=== PATIENT | female | born 1935 | race Caucasian/White ===

== ENCOUNTER 2021-06-06 10:59 | Emergency (ER) | payer OTHER, MEDICARE ==
[~2021-06-06] VITALS: Ht 152.4 cm; Wt 71.7 kg
[~2021-06-06 10:59] MED LIST: ALLOPURINOL100 MG PO; AMOX TR K CLV PO; ATENOLOL25 MG PO; AUGMENTIN 500-500 MG PO; CARAFATE1 GM PO; CARDURA1 MG PO; DIOVAN80 MG PO; DITROPAN XL5 MG PO; DOXAZOSIN MESYLA1 MG PO; FLAGYL250 MG PO; FUROSEMIDE20 MG PO; HUMULIN 70100 UNIT/1 SUB-Q; HUMULIN 70100 UNIT/3 SUB-Q; IRON236 MG PO; KLOR-CON 1010 MEQ PO; LANTUS SOL100 UNIT/1 SUB-Q; LEVOTHYROXINE50 MCG PO; LIPITOR10 MG PO; METRONIDAZOLE250 MG PO; OMEPRAZOLE20 MG PO; OXYBUTYNIN CHLOR5 MG PO; OXYCODON-ACETA1 EAC2 PO; PERCOCET 7.5-31 EACH PO; SUCRALFATE1 GM PO; TRAVATAN Z5 ML OU; VALSARTAN80 MG PO; VENLAFAXINE HCL75 MG PO; VITAMIN D1000 UNI1 PO; VITAMIN D5000 UNIT PO
[2021-06-06] MEDS ORDERED: ELIQUIS2.5 MG PO (11:22)
[2021-06-06] MEDS ORDERED: ALLOPURINOL100 MG PO (11:22)
[2021-06-06] MEDS ORDERED: LEVOTHYROXINE75 MCG PO (11:22)
[2021-06-06] MEDS ORDERED: LANTUS SOL100 UNIT/1 SUB-Q (11:24)
[2021-06-06] MEDS ORDERED: TORSEMIDE20 MG PO (11:25)
[2021-06-06] MEDS ORDERED: FIASP 100100 UNIT/1 SUB-Q (11:26)
== END 2021-06-06 13:00 | disposition home or self-care (01) ==
LOC: ED 10:59
DX: S86.911A Strain of unspecified muscle(s) and tendon(s) at lower leg level, right leg, initial encounter (principal); S00.83XA Contusion of other part of head, initial encounter; S80.02XA Contusion of left knee, initial encounter; W01.10XA Fall on same level from slipping, tripping and stumbling with subsequent striking against unspecified object, initial encounter; E11.9 Type 2 diabetes mellitus without complications; I10 Essential (primary) hypertension; E78.00 Pure hypercholesterolemia, unspecified; D64.9 Anemia, unspecified; Z88.6 Allergy status to analgesic agent; Z88.2 Allergy status to sulfonamides; Z88.1 Allergy status to other antibiotic agents; Z88.8 Allergy status to other drugs, medicaments and biological substances; Z79.899 Other long term (current) drug therapy; Z79.4 Long term (current) use of insulin
CPT/HCPCS: 70450; 72125; 73560; 99284-25

== ENCOUNTER 2021-12-17 16:16 | Inpatient (IN) | payer MEDICARE, OTHER ==
[~2021-12-17] VITALS: Ht 152.4 cm; Wt 65.3 kg
[~2021-12-17 16:16] MED LIST changes: +ELIQUIS2.5 MG PO; +FIASP 100100 UNIT/1 SUB-Q; +LEVOTHYROXINE75 MCG PO; +TORSEMIDE20 MG PO
[2021-12-17] MEDS ORDERED: AMIODARONE HCL200 MG PO (16:50)
--- NOTE | 2021-12-17 22:35 | NUR ---
TRANSPORTED PT. FROM ED TO PT ROOM ON M/S. ASSISTED PT WITH ORGANIZING BELONGINGS. PROVIDED PT. WITH CHICKEN BROTH AND FRESH ICE WATER. CALL LIGHT LEFT WITHIN REACH. NO OTHER IMMEDIATE NEEDS AT THIS TIME.
--- NOTE | 2021-12-17 23:39 | NUR ---
PATIENT ARRIVED TO THE FLOOR VIA STRETCHER. PATIENT MOVED FROM STRETCHER TO BED. PATIENT RATES PAIN AT A 6/10. PATIENTS ADMISSION COMPLETED. IV INFUSING PER ORDER. PATIENT IS AAOX4. WILSON DRAINING CLEAR YELLOW URINE. PATIENT HAS NO PAIN MEDICATION ON JAN. ON FLOOR, SPOKE WITH DR ARGUETA AND RECIEVED VERBAL ORDER. VERIFIED ORDER USING THE READBACK METHOD. NO FURTHER NEEDS NOTED CALL LIGHT IN REACH.
--- NOTE | 2021-12-18 00:04 | NUR ---
REPORT FROM KEYING MACHINE OPERATOR WHO ADMITTED THE PT FROM ER. PT WITH CALL LIGHT IN REACH AND MEDICATED FOR PAIN FROM FALLS AT HOME.
--- NOTE | 2021-12-18 04:21 | NUR ---
IN ROOM FOR I/O, WILSON DRAINED 300 ML, IV PUMP CLEARED NEW BAG RATE 125, VITALS TAKEN. PT SLEEPING AND EASILY AWAKE FOR VITALS - DENIES NEEDS FALLS BACK TO SLEEP, CALL LIGHT IN REACH.
--- NOTE | 2021-12-18 08:09 | NUR ---
BEDSIDE REPORT, PT REPOSITIONED FOR COMFORT. SHE REPORTS THAT AFTER HER BACK IS MORE COMFORTABLE.
--- NOTE | 2021-12-18 09:25 | NUR ---
IN ROOM TO ASSESS PT, SHE IS RESTING IN HER BED ALERT AND ORIENTED. SHE REPORTS 8/10 PAIN AT HER "TAIL BONE" AND BACK. DR. ARGUETA NOTIFIED THAT PT AM BG 69, BREAKFAST TRAY 50% CONSUMED AND ORANGE JUICE PROVIDED, PT DRINKING
--- NOTE | 2021-12-18 10:20 | NUR ---
PHYSICAL THERAPY IN ROOM. IN TO ASSIST. PT REPORTS PAIN ON LEFT INNER GLUTE. PT HAS OPEN SOAR. CLEANSED WITH WATER AND APPLIED ALLEVYN. PT SAT UP IN CHAIR. CALL LIGHT AND PERSONAL ITEMS WITHIN REACH.
--- NOTE | 2021-12-18 10:56 | NUR ---
PT OFF THE UNIT FOR IMAGING AT THIS TIME. DAUGHTER IN ROOM, UPDATED ON PLAN OF CARE AND PROGRESS THUS FAR
--- NOTE | 2021-12-18 11:36 | NUR ---
ROUNDED ON PT. IV FLUIDS HOOKED BACK TO IV SITE IN LEFT AC. IV FLUSHED WELL. NO PAIN. PT POSITIONED WITH PILLOW UNDER LEFT HIP PER REQUEST. DAUGHTER AT BEDSIDE. CALL LIGHT IN REACH.
--- NOTE | 2021-12-18 11:53 | NUR ---
PT BACK FROM IMAGING, SHE AND HER DAUGHTER IN ROOM, PT REPORTS PAIN 8/10 AFTER ACTIVITY, OXYCODONE 5MG TITRATE UP TO FULL DOSE AND TYLENOL ADMINISTERED AT THIS TIME, NEW FLUID ORDERS STARTED AND FRESH WATER PROVIDED TO PT AND DAUGHTER AT BEDSIDE.
--- NOTE | 2021-12-18 13:10 | NUR ---
PT ALERT, ORIENTED AND SITTING IN CHAIR VISITING WITH DAUGHTER. PT PLEASANT, GETTING READY FOR IMAGING. BOTH FEEL INFORMED, PLEASED WITH CARE. REQUEST MADE TO INFORM FR MCKENZIE PT IS HERE AND WOULD LIKE A VISIT. CONTACTED AND LEFT MSG. PT WOULD LIKE WHOLESALE BUYER TO VISIT TOMORROW FOLLOWING MASS, WILL INFORM. BRUNA [place] AND MARK. WILL FOLLOW
--- NOTE | 2021-12-18 13:30 | NUR ---
Spoke with pt and her daughter Sandra. Pt states she lives alone, but daughter states either she or her sister are there daily. Pt has a walker, shower chair, and a cane. She denies other needs. Daughter states she recently got a wc for pt from [place]. Pt does have difficulty walking out of her house. Pt and daughter deny further need or concerns.
--- NOTE | 2021-12-18 15:58 | NUR ---
PT HAS BEEN UP WITH P.T. TO RECLINER. SHE HAD MORE IMAGING OF LOW SPINE/PELVIC REGION NO FX. SHE HAS BEEN CONSUMING 50% OF MEALS, SHE HAS REPORTED SIGNIFICANT PAIN WITH ACTIVITY, OXYCODONE AND TYLENOL PRN FOR PAIN MANAGEMENT. SHE HAS BEEN ALERT AND ORIENTED THIS SHIFT. HER BG THIS AM WAS 69, PT ATE BREAKFAST, PLACED ON D5LR. BG AT LUNCH 47. MONITOR URINE OUT CLOSE. ENCOURAGE ORAL WATER INTAKE. DHRUV LABS IMPROVED THIS AM.
[2021-12-18] MEDS ORDERED: FLUOROMETHOLONE5 ML OS (16:32)
--- NOTE | 2021-12-18 17:28 | NUR ---
INTO PT ROOM TO ROUND ADMINISTER ABX, PT REPORTS PAIN 6/10, OXYCODONE 5MG PO PRN ADMINISTERED. PT'S DAUGHTER BROUGHT IN RX EYE DROPS, GIVEN TO OFELIA PHARMACIST, HE IS NOW IN PT ROOM FOR MED RECONCILE. HE SAID HE WILL CALL FOR ORDERS FOR HOME MEDICATIONS NEEDED.
[2021-12-18] MEDS ORDERED: VITAMIN D375 MCG PO (17:53)
[2021-12-18] MEDS ORDERED: ALLERGY EYE DRO10 M1 OU (17:54)
[2021-12-18] MEDS ORDERED: REFRESH CELLUV1 EACH OU (17:54)
--- NOTE | 2021-12-18 17:55 | NUR ---
MED REC COMPLETE
--- NOTE | 2021-12-18 18:42 | EKG ---
[facility] [address] [facility] [place] [address] Signed Atrial-sensed ventricular-paced rhythm with prolonged AV conduction Abnormal ECG When compared with ECG of 01-AUG-2019 16:01, Electronic ventricular pacemaker has replaced Sinus rhythm Confirmed by MALIK ARGUETA DO ([id number]) on 12/18/2021 6:42:31 PM Electronically Signed By: MALIK ARGUETA DO [id number]/[id number] PATIENT NAME: EROSBETH PISANO KRISTY Electrocardiogram DATE OF : [birth year] PHYSICIAN: MALIK ARGUETA DO REPORT #: [id number] REPORT IS CONFIDENTIAL AND NOT TO BE RELEASED WITHOUT AUTHORIZATION
--- NOTE | 2021-12-18 20:45 | NUR ---
VS, I&Os, GLUC CHECK (SEE EMAR) DONE
--- NOTE | 2021-12-18 21:08 | NUR ---
In bed, room air, lungs c insp crackles at bases, cleared with cough. turns and repositions self in bed. pleasant and coop. ivf infusing lac. cbg 136, no ss insulin coverage needed. pt has wireless glucose meter GEOFF. medicated wtih Tylenol per c/o tail bone pain. allevyn to area. no n/v, tolerating liquids well. f/c chroonic in place, patent. slight edema to ankles, elevated, uses call light.
--- NOTE | 2021-12-19 01:24 | NUR ---
EYES CLOSED, NO RESP DISTRESS, ON ROOM AIR, IVF INFUSING W/O PROBLEMS. CALL LIGHT AND FLUIDS AT BEDSIDE
--- NOTE | 2021-12-19 06:22 | NUR ---
Pt has slept most of this shift. c/o tail bone pain with movement, Allevyn to coccyx area. repositioned. Was medicated with Tylenol and was effective, no further c/o pain. On room air. IVF infusing w/o problems. f/c chronic. draining small amounts dark yellow urine. f/c care done. tolerating liquids well, no emesis. has Wireless glucose reader L upper arm. no s/sx hypo/hyperglycemia. alert and oriented. uses call light
--- NOTE | 2021-12-19 07:45 | NUR ---
BEDSIDE REPORT, PT HAS SLEPT OVER SHIFT, PER REPORT PT HAS DENIED WANTING OXYCODONE FOR PAIN WAS ADMINISTERED TYLENOL PRN ONCE.
--- NOTE | 2021-12-19 09:10 | NUR ---
PT RESTING IN BED, OCCUPATIONAL THERAPY IN ROOM TO WORK WITH PT, PT RATES PAIN 8/10 SEVERE. 10MG PO PRN OXYCODONE ADMINISTERED. PT DAUGHTER AT BEDSIDE. ASSESSMENT NO NEW CONCERNS.
--- NOTE | 2021-12-19 09:34 | NUR ---
PT IV NOTED TO BE LEAKING ON GOWN, ON ASSESSMENT APPEARS TO HAVE SMALL EARLY INFILTRATION DEVELOPED. IV REMOVED, RESPIRATORY COORDINATOR SAID SHE MAY POSSIBLY DISCHARGE TODAY, WILL CHAECK IN WITH BEFORE RESTARTING IV SITE.
--- NOTE | 2021-12-19 11:16 | NUR ---
PT ALERT, ORIENTED AND SITTING IN CHAIR VISITING WITH DAUGHTER ABENA. PT PLEASANT, HOPES TO DC TODAY AND WOULD LIKE THE LINEWORKER TO COME TODAY. WILL ARRANGE FR MEJIAS. BRUNA [place], WILL FOLLOW
--- NOTE | 2021-12-19 12:23 | NUR ---
PATIENT WAS ADMITTED AT HIGH RISK FOR MALNUTRITION DUE TO HAVING WEIGHT LOSS OF 33 LBS OR MORE. PATIENT STATES SHE LOST ~40 LBS ON HER OWN BECAUSE HER DOCTOR ENCOURAGED HER TO LOSE WEIGHT. SHE DID SAY HER APPETITE HAS NOT BEEN GREAT FOR A LITTLE WHILE. SHE JUST DOESN'T EAT MUCH ANYMORE. SHE DIDN'T HAVE A MENU SO I BROUGHT ONE TO HER. I EXPLAINED THAT IF SHE WANTED TO MAKE CHANGES OR DOESN'T WANT THE MEAL OF THE DAY AT ALL, SHE JUST NEEDS TO CALL THE KITCHEN BY A CERTAIN TIME TO MAKE THOSE CHANGES. PATIENT AND HER DAUGHTER APPRECIATED THE INFO.
--- NOTE | 2021-12-19 13:06 | NUR ---
PT REPORTS PAIN 6/10 AT TAIL BONE, LEFT SHOULDER FROM FALL. PRN PAIN ADMINISTRATION AT THIS TIME. SEE MAR
--- NOTE | 2021-12-19 16:46 | NUR ---
PT RESTING QUIETLY IN BED USING PERSONAL TABLET TO PLAY GAMES, NO COMPLAINTS OR REQUESTS
--- NOTE | 2021-12-19 18:00 | NUR ---
PT HAD SEVERE PAIN THIS AM, PT HAD DIFFICULTY PARTICIPATING WITH THERAPIES THIS AM DUE TO PAIN. PT HAS BEEN ADMINISTERED 10MG PO OXYCODONE Q4 HOURS X3 TO GAIN TOLERABLE PAIN LEVELS THIS AFTERNOON. SHE HAS HAD QUANTITY SUFFICIENT URINE OUT, 50% AND GREATER NUTRITIONAL INTAKE AT MEALS, SHE HAS BEEN UP TO RECLINER AND AMBULATED ONE PERSON ASSIST WITH FWW. SHE WILL DISCHARGE TO HOME WITH DAUGHTERS TO STAY WITH AND HELP. NO OTHER CONCERNS OVER THIS SHIFT.
--- NOTE | 2021-12-19 18:25 | NUR ---
PATIENT AWAKE IN BED, VITALS AND I&OS CHARTED. GARBAGE EMPTIED AND PATIENT REPOSITIONED IN BED WITH RN ASSISTING. CALL LIGHT IN EASY REACH
--- NOTE | 2021-12-19 19:15 | NUR ---
[facility] in bed, eyes closed, resp even and unlabored. Iv infusing per MAR
--- NOTE | 2021-12-19 21:00 | NUR ---
Assessment completed, Pt states she has very little pain, did receive scheduled tylenol, respositioned with assist of another staff member, no yelp of pain when moving. Aguirre care completed, all meds, eye drops given per MAR, LR infusing in RFA per MAR< flushes well. Refused offer of snack, stated she didn't have much of an appetite. BS 140, no SS insulin required. Fresh ice water given. All personal supplies within reach. Pt showed RN with call light how to call for help.
--- NOTE | 2021-12-19 23:36 | NUR ---
CHECKED ON PT. LAYING ON RIGHT SIDE, EYES CLOSED. RESP EVEN AND UNLABORED. ROOM FELT COLD, INCREASED TEMP TO 71.
--- NOTE | 2021-12-20 01:14 | NUR ---
CHECKED ON PT. EYES CLOSED, RESP @ 12, EVEN AND UNLABORED. WARMED ROOM TO 72 ROOM FELT COLD, PT COVERED WITH SHEET PER CHOICE.
--- NOTE | 2021-12-20 02:58 | NUR ---
CHECKED ON PT. WOKE AND INQUIRED OF PT PAIN. STATED SHE FELT LIKE SHE NEEDED TO PEE DESPITE HAVING WILSON. WILSON PATENT, BUT WITH MANIPULATION, INCREASE OF URINE OUTPUT IMMEDIATELY. PT DENIED PAIN, STATES SHE IS COMFORTABLE, OFFER PAIN MEDICATION, REFUSED. REFUSED TO BE REPOSITIONED STATED SHE IS VERY COMFORTABLE.
--- NOTE | 2021-12-20 06:15 | NUR ---
ENCOURAGED PT TO REPOSITION OFF HER RIGHT SIDE, SHE GRIMACED, SAID PAIN UP TO A 4/10, BUT WONDERS IF IT IS COCCYX DISCOMFORT VS TAILBONE, ENCOURAGED PT TO TAKE OXYCODONE 5MG, SO SHE COULD LAY ON HER BACK WITH LEGS STRETCHED OUT SO SHE ISN'T "STIFF" WHEN PT NEEDS TO WORK WITH HER. SHE AGREED. RN ASSISTED IN PULLING PT UP IN BED.
--- NOTE | 2021-12-20 07:15 | NUR ---
bedside report from bekah, pt eyes closed, resp rate even, pt on side. call light in reach.
--- NOTE | 2021-12-20 09:26 | NUR ---
DC WILSON INTACT 200 ML URINE OUT. PT EDUCATED THAT SHE IS DUE TO VOID IN NEXT 4 HRS. ENC HER TO GET UP WITH PT AND SIT ON TOILET.
--- NOTE | 2021-12-20 12:46 | NUR ---
PT AMB IN TO BR WITH PT AND RN - STANDBY ASSIST - PT DUE TO VOID AFTER WILSON REMOVED.
--- NOTE | 2021-12-20 13:00 | NUR ---
linens changed while pt was up in bathroom.
--- NOTE | 2021-12-20 14:00 | NUR ---
pt voided post lakhani x1 missed hat.
--- NOTE | 2021-12-20 15:18 | NUR ---
PT JUST NOW RESTING SOUNDLY - DAUGHTER IN ROOM READING - RN WILL COME BACK WITH SCHEDULED TYLENOL.
--- NOTE | 2021-12-20 15:47 | NUR ---
IV FUSING WELL, PO TYLENOL GIVEN. PT PLAYING GAME ON IPAD RATES PAIN 2/10 TOLLERABLE - DTF IN ROOM.
--- NOTE | 2021-12-20 19:15 | NUR ---
SHIFT REPORT RECEIVED FROM ARIANNE HOLT. PT RESTING IN BED. IV FLUIDS INFUSING PER ORDER. CALL LIGHT IN REACH.
--- NOTE | 2021-12-20 19:21 | NUR ---
wound nurse consult. DR ARGUETA ASKED ME TO SEE PT REGAURDING INTRAGLUTEAL WOUNDS. 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 LEFT IS SIZE OF A NIK AND LEFT ONE IS THE SIZE OF A QUARTER. BOTH WOUNDS CLEANED WITH SOAP AND WATER. DRIED THOROUGHLY. ALLEVYNS APPLIED. CHANGE DRESSING Q3DAY OR PRN FOR DRAINAGE.
--- NOTE | 2021-12-20 19:50 | NUR ---
PT ASSISTED UP TO BSC, BACK TO BED 1PA PIVOT
--- NOTE | 2021-12-20 21:30 | NUR ---
in to get vitals, gluc check (see emar), pt provided ice water, iv pump alarming, rn notified, pt assisted up to the bsc, no further needs
--- NOTE | 2021-12-20 22:00 | NUR ---
ASSESSMENT COMPLETED. PT STATES SHE HAS 5/10 LOWER BACK PAIN BUT DENIES NEED FOR PAIN MANAGEMENT MEDS. SCHEDULED MEDS PROVIDED. IV WNL, CDI, FLUSHED WELL. IV FLUIDS INFUSING PER ORDER. LUNGS CLEAR. HERAT HAS MURMUR. ABD SOFT, NONTENDER, BOWEL TONES ACTIVE. PT REPORTS NUMBNESS AND TINGLING IN FEET, PULSE INTACT. CMS INTACT IN UPPER EXTREMITIES. ALLEVYN ON BUTTOCKS WOUNDS. NO OTHER NEEDS AT THIS TIME. CALL LIGHT IN REACH, BED ALARM ON.
--- NOTE | 2021-12-20 23:20 | NUR ---
BED ALARM SET OFF, PT REQUESTING TO USE THE BSC, ASSISTED UP 1PA, PT WILL CALL WHEN READY
--- NOTE | 2021-12-20 23:30 | NUR ---
pt reports 7/10 lower back pain, prn pain med provided. pt repositioned. no other needs. call light in reach.
--- NOTE | 2021-12-21 | NUR ---
PT RESTING IN BED, EYES CLOSED. RR EVEN, UNLABORED. BED ALARM ON, CALL LIGHT IN REACH.
--- NOTE | 2021-12-21 01:03 | NUR ---
BED ALARM SET OFF, PT ROLLING UNTO HER RIGHT SIDE, NO FURTHER NEEDS AT THIS TIME
--- NOTE | 2021-12-21 02:17 | NUR ---
PT RESTING IN BED, EYES CLOSED. RR EVEN, UNLABORED. BED ALARM ON, CALL LIGHT IN REACH.
--- NOTE | 2021-12-21 04:00 | NUR ---
PT RESTING IN BED, EYES CLOSED. RR EVEN, UNLABORED. IV FLUIDS INFUSING PER ORDER. CALL LIGHT IN REACH.
--- NOTE | 2021-12-21 05:26 | NUR ---
ASSESSMENT, VS AND I&O X4. SCHEDULED MED PROVIDED. PT STATES PAIN IS 2/10, DENIES NEED FOR INTERVENTION. IV WNL, IV FLUIDS INFUSING PER ORDER. NUMBNESS AND TINGLING IN FEET UNCHANGED. NO OTHER NEEDS AT THIS TIME. CALL LIGHT IN REACH, BED ALARM ON.
--- NOTE | 2021-12-21 05:58 | NUR ---
IN TO ASSIST PT BACK TO BED FROM BSC, NO FURTHER NEEDS AT THIS TIME
--- NOTE | 2021-12-21 07:15 | NUR ---
report from Sadia HOLT, pt resting eyes closed, call light in reach, resp even.
--- NOTE | 2021-12-21 08:18 | NUR ---
PT UP WITH RN TO BSC TO VOID, PAINFUL WITH EXERTION, PO TYLENOL GIVE WITH MEAL NOW UP IN EATING WITH CALL LIGHT IN REACH.
--- NOTE | 2021-12-21 09:21 | NUR ---
PATIENT SELF TRANSFERRED WITH WALKER AND STANDBY ASSIST FROM CHAIR TO BED. PATIENT REPOSITIONED TO LEFT SIDE WITH PILLOW TO PROP.
--- NOTE | 2021-12-21 10:23 | NUR ---
pt amb to br with fww standby assist from pt - medicated with po meds prn for therapy.
--- NOTE | 2021-12-21 15:20 | NUR ---
PT AMB TO BR WITH RN TO VOID - FWW STANDBY ASSIST. TOLLERATED WITH MODERATE PAIN WITH MOVEMENT.
--- NOTE | 2021-12-21 19:30 | NUR ---
PT AWAKE, WATCHING TV FOOTBALL ,DENIES C/O PAIN, STATED SHE IS COMOFRTABLE. FLUIDS AND CALL LIGHT AT BEDSIDE, AWARE SCHEDULED SUPP. FAMILY IN ROOM
--- NOTE | 2021-12-21 22:15 | NUR ---
ASSISTED PRIMARY RN FRANSISCO. PATIENT CHANGED ATTENDS AND PALCE CHUX AND REPOSITIONED.
--- NOTE | 2021-12-21 22:17 | NUR ---
Pt awake, watching tv, received 1 unit ss insulin, CBG 141. took miralax, senna tabs and dulc supp (R) given. [address] low buttocks. repositioned in bed, hob elevated, tender was medicated with Tylenol IVF infusing RFA. edema to LE, redness of toes present, scabbed over area healing. all procedures exxplained, receptive. attends in place.
--- NOTE | 2021-12-21 22:44 | NUR ---
AWAKES EASILY, USING HER HOME CPAP, TOOK MEDS W/O PROBLEMS, UP TO BR, VOIDED, BACK TO BED, TOLERATED WELL, NO C/O PAIN. CALL LIGHT AND FLUIDS AT BEDSIDE
--- NOTE | 2021-12-21 23:27 | NUR ---
UP TO BSC, VOIDED, PAINFUL, 2PA/FWW, BACK TO BED, REPOSITIONED, CALL LIGHT AT HANDS REACH
--- NOTE | 2021-12-22 01:11 | NUR ---
Up to BSC, voided, 1PA/FWW. back to bed, tolerated fair. paindul back and tail bone, helped with repositioned. Continues to encourage independency, fall precautions.
--- NOTE | 2021-12-22 02:30 | NUR ---
Up to bsc, 1-2PA/FWW, unsteady weak gait, voided, back to bed. Allevyn to buttocks in place. uses call light tolerating fluids. Tolerated fair
--- NOTE | 2021-12-22 03:50 | NUR ---
uP TO bsc, VOIDED, BACK TO BED, 1-2pa/fww, UNSTEADY GAIT, TOLERATED FAIR, DECLINES PAIN MEDS, OFFERED SEVERAL TIMES. C/O BACK AND TAIL BONE PAIN WHEN PLACED BACK IN BED, HELPED WITH REPOSITIONING
--- NOTE | 2021-12-22 06:09 | NUR ---
PT HAS SLEPT OFF AND ON THIS SHIFT, ON ROOM AIR, NO SOB WITH EXERTION. WAS MEDICATED X1 PER BACK/TAIL BONE PAIN EFFECTIVE. CONTINUES TO HAVE TAIL BONE DISCOMOFRT WHENIN BED, GETTING UP OR REPOSITIONING. UP TO BSC/BR SEVERAL TIMES, VOIDING QS. UNSTEADY GAIT, 1-2PA/FWW. TOLERATING LIQUDIS WELL
--- NOTE | 2021-12-22 06:41 | NUR ---
PT IV LEAKING, WILL DC, DR MARTINEZ NOTIFIED VIA PHONE. NEW ORDERS OBTAINED FOR "OK TO LEAVE IV OUT AT THIST MELISSA, DC IV ROCEPHIN AND START KEFLEX 500MG PO BID"
--- NOTE | 2021-12-22 07:26 | NUR ---
bedside report from Kimberly Rn, pt call light in reach, denies needs - breakfast at table.
--- NOTE | 2021-12-22 08:17 | NUR ---
PT AWAKE AND IS SBA WITH FWW TO THE BATHROOM. CALL LIGHT IN REACH.
--- NOTE | 2021-12-22 08:38 | NUR ---
PT SITTING IN , REPOSITIONED FOR COMFORT AND PO MEDS GIVEN FOR PAIN - NO RELIEF - 1 PERSON ASSIST WITH FWW TO BED LEFT SIDE WITH PILLOW TO KEEP OFF SORE BACK. PT REPORTS IMPROVEMENT. DECLINES MEAL - HAD OJ WITH MIRILAX AND SOME OF HER MCDONALDS BITES OF BREAKFAST SANDWICH, NOW PLAYING GAME ON IPAD WITH MORE COMFORT.
--- NOTE | 2021-12-22 08:51 | NUR ---
REPOSITIONED PT AGAIN TO RIGHT SIDE - MEDICATED WITH OXY PO. IN ANTICIPATION OF PT.
[2021-12-22] MEDS ORDERED: CEPHALEXIN500 MG PO (09:25)
--- NOTE | 2021-12-22 09:35 | NUR ---
in with pt and dtg Munira discuss dc home, lab in for bmp to check kcl.
--- NOTE | 2021-12-22 11:30 | NUR ---
PT UP TO SHOWER IN SHOWER CHIAR WITH WHEELS. PT IS 1PA IN THE SHOWER AND GETTING DRESSED. PT IS READY FOR DC WITH DAUGHTER AT BEDSIDE.
--- NOTE | 2021-12-22 13:18 | NUR ---
PT ALERT, ORIENTED AND VISITING WITH DAUGHTER CHASITY IN ANTICIPATION OF DC LATER TODAY. PT SAYS SHE IS READY FOR DC, CHASITY EXCITED TO GET PT HOME. GAVE BLESSING AND ENCOURAGEMENT.
== END 2021-12-22 11:35 | disposition home health service (06) | DRG 683 ==
LOC: ED 16:16 → MS 21:13
PROVIDERS: ADMIT Student in an Organized Health Care Education/Training Program; ATTEND Student in an Organized Health Care Education/Training Program
DX: N17.9 Acute kidney failure, unspecified (principal); N39.0 Urinary tract infection, site not specified; Z20.822 Contact with and (suspected) exposure to COVID-19; I48.91 Unspecified atrial fibrillation; I10 Essential (primary) hypertension; E03.9 Hypothyroidism, unspecified; R29.6 Repeated falls; I35.0 Nonrheumatic aortic (valve) stenosis; E11.9 Type 2 diabetes mellitus without complications; E79.0 Hyperuricemia without signs of inflammatory arthritis and tophaceous disease; D64.9 Anemia, unspecified; E86.0 Dehydration; L53.9 Erythematous condition, unspecified; E78.00 Pure hypercholesterolemia, unspecified; F32.A Depression, unspecified; Z96.653 Presence of artificial knee joint, bilateral; B96.1 Klebsiella pneumoniae [K. pneumoniae] as the cause of diseases classified elsewhere; B96.20 Unspecified Escherichia coli [E. coli] as the cause of diseases classified elsewhere; Z95.0 Presence of cardiac pacemaker; Z87.19 Personal history of other diseases of the digestive system; Z85.828 Personal history of other malignant neoplasm of skin; Z90.710 Acquired absence of both cervix and uterus; Z90.49 Acquired absence of other specified parts of digestive tract; Z98.49 Cataract extraction status, unspecified eye; Z98.890 Other specified postprocedural states; Z88.1 Allergy status to other antibiotic agents; Z88.2 Allergy status to sulfonamides; Z88.8 Allergy status to other drugs, medicaments and biological substances; Z79.4 Long term (current) use of insulin; Z79.01 Long term (current) use of anticoagulants; Z79.899 Other long term (current) drug therapy
CPT/HCPCS: 36415; 51702; 70450; 71045; 72100; 72125; 72202; 80048; 80053; 81001; 83735; 84484; 85025; 87088; 97116; 97162; 97165; 97530; 99285-25; A9270; C9803; J0696; J1815; J2270; J7030; J7121; U0003

== ENCOUNTER 2022-06-20 06:08 | Emergency (ER) | payer MEDICARE, OTHER ==
[~2022-06-20] VITALS: Ht 152.4 cm; Wt 64.9 kg
[~2022-06-20 06:08] MED LIST changes: +ALLERGY EYE DRO10 M1 OU; +AMIODARONE HCL200 MG PO; +CEPHALEXIN500 MG PO; +FLUOROMETHOLONE5 ML OS; +REFRESH CELLUV1 EACH OU; +VITAMIN D375 MCG PO
--- NOTE | 2022-06-22 09:37 | NUR ---
Meet with the sisters of PT. Pryaed and offered comport PT has already passed. No personal belongings. Called [facility]. When Arrived, helped transport PT to car
== END 2022-06-20 08:00 ==
LOC: ED 06:08
PROC: 0BH17EZ Insertion of Endotracheal Airway into Trachea, Via Natural or Artificial Opening (ICD-10-PCS; principal; 2022-06-20)
DX: I46.9 Cardiac arrest, cause unspecified (principal); J96.91 Respiratory failure, unspecified with hypoxia; E11.9 Type 2 diabetes mellitus without complications; I10 Essential (primary) hypertension; D64.9 Anemia, unspecified; Z88.6 Allergy status to analgesic agent; Z88.2 Allergy status to sulfonamides; Z88.8 Allergy status to other drugs, medicaments and biological substances; Z79.899 Other long term (current) drug therapy; Z79.01 Long term (current) use of anticoagulants; Z79.4 Long term (current) use of insulin
CPT/HCPCS: 31500; 92950; 99285-25; J0171; J0330